=== PATIENT | male | born 1950 | race Caucasian/White ===

== ENCOUNTER → 2016-11-19 | Outpatient (CLI) | payer MEDICARE, BC | LOC: RAD 08:09 | PROVIDERS: ATTEND Internal Medicine | DX: C64.1 Malignant neoplasm of right kidney, except renal pelvis (principal) | CPT/HCPCS: 70460; 71260; 74177 ==

== ENCOUNTER 2016-12-03 07:12 | Day surgery (SDC) | payer MEDICARE, BC ==
[~2016-12-03 07:12] MED LIST: EPINEPHRINE INJ 1 MG/10 ML DISP.SYRIN ONE; FENTANYL CITRATE INJ/PF 100 MCG/2 ML AMPUL ONE; FLUMAZENIL INJ 0.5 MG/5 ML VIAL IV ONE; GLUCAGON,HUMAN RECOMB 1 MG INJ ONE; GLYCOPYRROLATE INJ 0.4 MG/2 ML VIAL ONE; NALOXONE HCL INJ/PF 0.4 MG/1 ML SDV ONE; ONDANSETRON HCL INJ/PF 4 MG/2 ML SDV ONE; PROMETHAZINE HCL INJ 25 MG/1 ML VIAL ONE
[2016-12-03] MEDS: MIDAZOLAM 2 MG/2 ML INJ ONE ×2 (08:06→08:12)
--- NOTE | 2016-12-03 08:39 | Operative Report ---
Operative Report DATE OF SURGERY: 12/03/16 PREOPERATIVE DIAGNOSIS: 1. Anemia. 2. Renal masses. 3. Need for screening colonoscopy POSTOPERATIVE DIAGNOSIS: Same with rectosigmoid polyp OPERATION: 1. Total colonoscopy to cecum with photodocumentation. 2. Rectosigmoid polypectomy at 18 cm from the anal verge SURGEON: JUNE ALBA ANESTHESIA: Moderate Sedation TISSUE REMOVED OR ALTERED: Polyp COMPLICATIONS: None ESTIMATED BLOOD LOSS: none INTRAOPERATIVE FINDINGS: See below PROCEDURE: Obtaining informed consent the patient was taken from the preoperative holding area to the main endoscopy suite where monitoring devices were attached to the patient. Plan and surgical timeout were conducted The patient was placed in the left lateral decubitus position with knees to chest. A perianal examination was performed. There was no visible or palpable anorectal pathology. Sphincter tone was felt to be normal. The flexible adult colonoscope was advanced through the anal rectal canal, all the way to the cecum. Utilization of the cecum was achieved and the ileocecal valve, the appendiceal orifice and transillumination of the anterior abdominal wall. This was an excellent study on the well-prepped bowel. The colonoscope was withdrawn slowly and methodically checked and the mucosa carefully. There was no evidence of tumor, stricture, or bleeding. In the upper rectum swelling 18 cm from the anal verge rectosigmoid junction was a pedunculated polyp approximately 4-5 mm in diameter. It was photographed , lasted with the snare, and polypectomy performed on medium heat strength. Specimen retrieved. No bleeding at the polypectomy site. There was no evidence of diverticuloses. The scope was slowly withdrawn through the anal rectal canal. Complete visualization of the rectum was achieved with photodocumentation. The scope was withdrawn to the patient's anus. The patient tolerated the procedure well and was taken to the recovery area in stable condition. At this point, barring any other pathologic findings involving the GI tract, the patient will be appropriate candidate for surveillance colonoscopy in 3 years, or sooner if symptoms develop.
--- NOTE | 2016-12-03 08:42 | PDOC DISCHARGE SUMMARY ---
Discharge Summary (SDC) - Discharge Final Diagnosis: 1. Anemia 2. Rectosigmoid Polyp 3. Renal masses Date of Surgery: 12/03/16 Discharge Date: 12/03/16 Condition: Good Treatment or Instructions: [address] [address] POST ENDOSCOPY DISCHARGE INSTRUCTIONS 1. Diet: Start clear liquids that a regular diet as tolerated. 2. Resume all preoperative medications. All oral anticoagulations and aspirins can be resumed 24 hours after procedure. 3. If a polypectomy was performed some bleeding per rectum may occur. This should stop within 3 days. If not, please contact the office. 4. If you had a colonoscopy you may experience some bloating and delayed return of normal bowel function for several days, your regular bowel movement pattern should resume within a week. 5. Please contact [facility] at to make an appointment with Dr Ceron for 1 to 3 weeks following procedure. 6. If you have any questions or concerns regarding your care,treatment plan or follow up, please contact our office. 7. Per clinical guidelines we recommend you undergo a repeat colonoscopy in 3 years. Discharge Diet: As Tolerated Discharge Activity: Activity As Tolerated Home Care Assistance: None Needed Report the Following to Your Physician Immediately: Shortness of Breath, Increase in Pain, Fever over 101 Degrees - Patient follow-up [facility], Dr. Ceron, in 1 to 2 weeks.
[2016-12-03 09:33] VITALS: BP 109/71
== END 2016-12-03 09:34 | disposition home or self-care (01) ==
LOC: END 07:12
PROVIDERS: ATTEND Surgery
PROC: 0DBP8ZX Excision of Rectum, Via Natural or Artificial Opening Endoscopic, Diagnostic (ICD-10-PCS; 2016-12-03)
PROC: 0DBN8ZX Excision of Sigmoid Colon, Via Natural or Artificial Opening Endoscopic, Diagnostic (ICD-10-PCS; principal; 2016-12-03 07:30)
DX: Z12.11 Encounter for screening for malignant neoplasm of colon (principal); D12.7 Benign neoplasm of rectosigmoid junction; C64.1 Malignant neoplasm of right kidney, except renal pelvis; D50.9 Iron deficiency anemia, unspecified; F17.210 Nicotine dependence, cigarettes, uncomplicated; I48.91 Unspecified atrial fibrillation; F41.9 Anxiety disorder, unspecified; F43.10 Post-traumatic stress disorder, unspecified; K21.9 Gastro-esophageal reflux disease without esophagitis; I10 Essential (primary) hypertension; I73.9 Peripheral vascular disease, unspecified; Z79.899 Other long term (current) drug therapy
CPT/HCPCS: 45385; 82962; 88305 ×2; J2250; J3010; J0171; J1610; J2310; J2405; J2550; J3490

== ENCOUNTER 2017-03-04 17:29 | Emergency (ER) | payer MEDICARE, BC ==
--- NOTE | 2017-03-04 18:15 | ER Document Report ---
ED Medical Screen (RME) - General Chief Complaint: Chest Pain Stated Complaint: CHEST PAIN Time Seen by Provider: 03/04/17 18:08 Notes: Patient is complaining of a "sharp, stabbing, pain in the left lower anterior chest region that began when he awakened Wednesday morning. At first it was mild and off and on, but now has become constant. It hurts for him to move or take a deep breath and he feels short of breath. Recalls no injury or unusual activity that would have strained his chest wall. Has had diarrhea but no vomiting. A nonproductive cough has been present. No fever. Hx atrial fibrillation Patient was diagnosed with kidney cancer a year ago. He has been too anemic to undergo surgery. Recently moved to this area from [place]. TRAVEL OUTSIDE OF THE [place] IN LAST 30 DAYS: No - Related Data Allergies/Adverse Reactions: ondansetron [From Zofran (as hydrochloride)] Allergy (Severe, Verified 03/04/17 17:44) HEADACHE diazepam [From Valium] Allergy (Intermediate, Verified 03/04/17 17:44) HARD TIME WAKING meperidine [From Demerol] Allergy (Intermediate, Verified 03/04/17 17:44) HARD TO WAKE UP oxycodone Allergy (Intermediate, Verified 03/04/17 17:44) ITCHING lorazepam [From Ativan] Allergy (Verified 03/04/17 17:44) "HYPER" atorvastatin [From Lipitor] Adverse Reaction (Verified 03/04/17 17:44) VOMITING Past Medical History - Past Medical History Cardiac Medical History: Reports: Hx Hypertension Denies: Hx Coronary Artery Disease, Hx Heart Attack Pulmonary Medical History: Denies: Hx Asthma, Hx Bronchitis, Hx COPD, Hx Pneumonia Neurological Medical History: Denies: Hx Cerebrovascular Accident, Hx Seizures Renal/ Medical History: Denies: Hx Peritoneal Dialysis Musculoskeltal Medical History: Reports Hx Arthritis - R/T SURGERY - Immunizations Hx Diphtheria, Pertussis, Tetanus Vaccination: Yes Physical Exam - Vital signs Vitals: Temp Pulse Resp BP Pulse Ox 97.5 F 83 20 158/104 H 98 03/04/17 17:44 03/04/17 17:44 03/04/17 17:44 03/04/17 17:44 03/04/17 17:44 Course - Vital Signs Vital signs: Temp Pulse Resp BP Pulse Ox 97.5 F 83 20 158/104 H 98 03/04/17 17:44 03/04/17 17:44 03/04/17 17:44 03/04/17 17:44 03/04/17 17:44
[2017-03-04 18:49] LABS: ABSOLUTE BASOPHILS # (AUTO) 0.1 10^3/uL (0.0-0.2); ABSOLUTE EOSINOPHILS # (AUTO) 0.3 10^3/uL (0.0-0.6); ABSOLUTE LYMPHOCYTES (AUTO) 2.7 10^3/uL (0.5-4.7); ABSOLUTE MONOCYTES (AUTO) 0.5 10^3/uL (0.1-1.4); ABSOLUTE NEUT (AUTO) 4.9 10^3/uL (1.7-8.2); EOSINOPHILS % (AUTO) 3.6 % (0-6); HEMATOCRIT 46.4 % (37.9-51.0); HEMOGLOBIN 15.8 g/dL (13.5-17.0); LYMPHOCYTES % (AUTO) 31.7 % (13-45); MEAN CORPUSCULAR HEMOGLOBIN 29.6 pg (27.0-33.4); MEAN CORPUSCULAR HGB CONC 34.1 g/dL (32.0-36.0); MEAN CORPUSCULAR VOLUME 87 fl (80-97); MONOCYTES % (AUTO) 5.9 % (3-13); RED BLOOD COUNT 5.35 10^6/uL (4.35-5.55); RED CELL DISTRIBUTION WIDTH 15.8 % (11.5-14.0); SEGMENTED NEUTROPHILS % (AUTO) 57.8 % (42-78); WHITE BLOOD COUNT 8.5 10^3/uL (4.0-10.5)
[2017-03-04 19:09] LABS: ALANINE AMINOTRANSFERASE 21 U/L (21-72); ALBUMIN 4.2 g/dL (3.5-5.0); ALKALINE PHOSPHATASE 80 U/L (38-126); ANION GAP 10 (5-19); ASPARTATE AMINO TRANSFERASE 19 U/L (17-59); BILIRUBIN,DIRECT 0.5 mg/dL (0.0-0.4); BILIRUBIN,TOTAL 0.8 mg/dL (0.2-1.3); BLOOD UREA NITROGEN 15 mg/dL (7-20); CALCIUM 9.6 mg/dL (8.4-10.2); CARBON DIOXIDE 26 mmol/L (22-30); CHLORIDE 103 mmol/L (98-107); CREATINE KINASE 76 U/L (55-170); CREATININE RESULT 1.01 mg/dL (0.52-1.25); GLUCOSE 94 mg/dL (75-110); POTASSIUM 4.6 mmol/L (3.6-5.0); SODIUM 139.2 mmol/L (137-145); TOTAL PROTEIN 7.3 g/dL (6.3-8.2)
[2017-03-04 19:20] LABS: CREATINE KINASE MB 1.43 ng/mL (<4.55)
[2017-03-04 19:26] LABS: TROPONIN I < 0.012 ng/mL
[2017-03-04] MEDS ORDERED: HYDROCODONE/ACETAMINOPHEN 5-325 MG TABLET PO ONE (21:52)
[2017-03-04] MEDS ORDERED: ALPRAZOLAM 0.5 MG TABLET PO ONE (21:53)
--- NOTE | 2017-03-04 21:59 | ER Document Report ---
ED General - General Chief Complaint: Chest Pain Stated Complaint: CHEST PAIN Time Seen by Provider: 03/04/17 18:08 Mode of Arrival: Medic Information source: Patient TRAVEL OUTSIDE OF THE [place] IN LAST 30 DAYS: No - HPI Notes: Patient is a 67-year-old white male history of bilateral renal cancer presents emergency department with report of 3 day history of left-sided pleuritic chest pain associated with a nonproductive cough. He denies any nausea vomiting or fever. He states the pain is pleuritic and associated with some shortness of breath. He reports a mild headache, not the worst of his life. He describes very minimal diarrhea. He reports that he was referred for hospice previously in [place], states he moved here in September. Patient states he was told previously he had cancer in his brain lungs and on one kidney, then subsequent scans and studies performed on 11/19/16 here showed a negative head CT a negative chest CT and did confirm cancer appearing lesions and the kidneys 2 cm on the right and 1.5 cm on the left. For somewhat unclear reasons, the patient was taken off his Pradaxa two months ago for his chronic atrial fibrillation. The patient reports of chest pain is left-sided and nonmigratory. Patient follows up with an oncologist, but states he has been unable to obtain a ride to go see a follow-up urologist surgeon in [place] for further evaluation of his renal cancer. Medications Cymbalta, Seroquel, Xanax 2 mg p.o. nightly. He has not had Xanax this evening. - Related Data Allergies/Adverse Reactions: ondansetron [From Zofran (as hydrochloride)] Allergy (Severe, Verified 03/04/17 17:44) HEADACHE diazepam [From Valium] Allergy (Intermediate, Verified 03/04/17 17:44) HARD TIME WAKING meperidine [From Demerol] Allergy (Intermediate, Verified 03/04/17 17:44) HARD TO WAKE UP oxycodone Allergy (Intermediate, Verified 03/04/17 17:44) ITCHING lorazepam [From Ativan] Allergy (Verified 03/04/17 17:44) "HYPER" atorvastatin [From Lipitor] Adverse Reaction (Verified 03/04/17 17:44) VOMITING Past Medical History - General Information source: Patient - Social History Smoking Status: Current Every Day Smoker Chew tobacco use (# tins/day): No Frequency of alcohol use: None Drug Abuse: None Lives with: Family Family History: Reviewed & Not Pertinent Patient has suicidal ideation: No Patient has homicidal ideation: No - Past Medical History Cardiac Medical History: Reports: Hx Hypertension Denies: Hx Coronary Artery Disease, Hx Heart Attack Pulmonary Medical History: Denies: Hx Asthma, Hx Bronchitis, Hx COPD, Hx Pneumonia Neurological Medical History: Denies: Hx Cerebrovascular Accident, Hx Seizures Renal/ Medical History: Denies: Hx Peritoneal Dialysis Musculoskeltal Medical History: Reports Hx Arthritis - R/T SURGERY - Immunizations Hx Diphtheria, Pertussis, Tetanus Vaccination: Yes Hx Pneumococcal Vaccination: 10/18/14 Review of Systems - Review of Systems Notes: REVIEW OF SYSTEMS: CONSTITUTIONAL : Denies fever, chills, or sweats. EENT: Denies eye, ear, throat, or mouth pain or symptoms. Denies nasal or sinus congestion or discharge. Denies throat, tongue, or mouth swelling or difficulty swallowing. CARDIOVASCULAR: Denies palpitations or racing or irregular heart beat. Denies ankle edema. RESPIRATORY: Denies wheezing. GASTROINTESTINAL: Denies abdominal pain or distention. Denies nausea, vomiting , or diarrhea. Denies blood in vomitus, stools, or per rectum. Denies black, tarry stools. Denies constipation. GENITOURINARY: Denies difficulty urinating, painful urination, burning, frequency, blood in urine, or discharge. MUSCULOSKELETAL: Denies back or neck pain or stiffness. Denies joint pain or swelling. SKIN: Denies rash, lesions or sores. HEMATOLOGIC : Denies easy bruising or bleeding. LYMPHATIC: Denies swollen, enlarged glands. NEUROLOGICAL: Denies confusion or altered mental status. Denies passing out or loss of consciousness. Denies dizziness or lightheadedness. Denies weakness or paralysis or loss of use of either side. Denies problems with gait or speech. Denies sensory loss, numbness, or tingling. Denies seizures. PSYCHIATRIC: Denies anxiety or stress. Denies depression, suicidal ideation, or homicidal ideation. ALL OTHER SYSTEMS REVIEWED AND NEGATIVE. Dictation was performed using [employer] voice recognition software Physical Exam - Vital signs Vitals: Temp Pulse Resp BP Pulse Ox 97.5 F 83 20 158/104 H 98 03/04/17 17:44 03/04/17 17:44 03/04/17 17:44 03/04/17 17:44 03/04/17 17:44 - Notes Notes: PHYSICAL EXAMINATION: GENERAL: Well-appearing, well-nourished and in no acute distress. Very anxious. HEAD: Atraumatic, normocephalic. EYES: Pupils equal round and reactive to light, extraocular movements intact, sclera anicteric, conjunctiva are normal. ENT: Nares patent, oropharynx clear without exudates. Moist mucous membranes. NECK: Normal range of motion, supple without lymphadenopathy LUNGS: Breath sounds clear to auscultation bilaterally and equal. No wheezes rales or rhonchi. Tenderness left anterior chest wall. No crepitance or bony deformity. HEART: Regular rate and rhythm without murmurs ABDOMEN: Soft, nondistended abdomen. No guarding, no rebound. No masses appreciated. Minimal tenderness along the left lower anterior costal margin. No crepitance or bony deformity or erythema. Musculoskeletal: Normal range of motion, no pitting or edema. No cyanosis. Negative Homans. No palpable cord. NEUROLOGICAL: Cranial nerves grossly intact. Normal speech, normal gait. Normal sensory, motor exams PSYCH: Normal mood, normal affect. SKIN: Warm, Dry, normal turgor, no rashes or lesions noted. Course - Re-evaluation Re-evalutation: 03/04/17 22:00 Patient was given Xanax 2 mg which is his usual evening dose, and was given two hydrocodone tablets which he has tolerated previously. Initial and repeat troponin were negative on the patient. 03/04/17 23:14 Patient was watched on it web development consultant and he remained in atrial fibrillation with controlled ventricular response. The patient's blood pressure remained stable. The patient reported improvement after his hydrocodone and Xanax dosing. Patient's and the patient reported that the patient's oncologist was taking steps keeping him comfortable, and the patient had stated he did not want to undergo chemotherapy or other significant aggressive treatment for his cancer. CT scan of the chest and abdomen are pending on the patient at the current time. Must rule out spread of cancer versus pulmonary embolus given that the patient is anticoagulated at the current time. Must also rule out pneumonia given the recent mild cough. 03/05/17 00:00 - Vital Signs Vital signs: Temp Pulse Resp BP Pulse Ox 97.5 F 83 14 158/104 H 99 03/04/17 17:44 03/04/17 17:44 03/04/17 21:27 03/04/17 17:44 03/04/17 21:27 - Laboratory Result Diagrams: 03/04/17 18:20 03/04/17 18:20 Laboratory results interpreted by me: 03/04/17 03/04/17 18:20 18:20 RDW 15.8 H Direct Bilirubin 0.5 H - EKG Interpretation by Me Additional EKG results interpreted by me: 03/04/17 21:59 EKG as interpreted by me showed Atrial fibrillation which is chronic for the patient with controlled ventricular response rate of 71. There is no gross evidence for acute HI or ischemia identified. No old EKG available for comparison. 03/04/17 22:00 Discharge - Discharge Clinical Impression: Chest pain Qualifiers: Chest pain type: unspecified Qualified Code(s): R07.9 - Chest pain, unspecified Renal cell cancer Qualifiers: Laterality: left Qualified Code(s): C64.2 - Malignant neoplasm of left kidney, except renal pelvis Atrial fibrillation Qualifiers: Atrial fibrillation type: chronic Qualified Code(s): I48.2 - Chronic atrial fibrillation Prescriptions: Alprazolam [Xanax] 2 mg PO HSP PRN #30 tablet PRN Reason: Referrals: NORMA SIN MD [Primary Care Provider] - Follow up as needed
[2017-03-05 02:25] VITALS: BP 138/83
--- NOTE | 2017-03-05 07:11 | EKG REPORT ---
SEVERITY:- ABNORMAL ECG - ATRIAL FIBRILLATION, V-RATE 53-91 BORDERLINE PROLONGED QT INTERVAL : Confirmed by: Monique Crowell MD 05-Mar-2017 07:10:43
== END 2017-03-05 02:34 | disposition home or self-care (01) ==
LOC: ER 17:29
DX: R07.81 Pleurodynia (principal); R06.02 Shortness of breath; R05 Cough; I48.2 Chronic atrial fibrillation; C64.2 Malignant neoplasm of left kidney, except renal pelvis; R51 Headache; R19.7 Diarrhea, unspecified; I10 Essential (primary) hypertension; F17.200 Nicotine dependence, unspecified, uncomplicated; Z79.899 Other long term (current) drug therapy; Z88.8 Allergy status to other drugs, medicaments and biological substances; Z88.5 Allergy status to narcotic agent
CPT/HCPCS: 93005; 99285; 36415; 82553; 82550; 85025; 80053; 84484; 71020; 71275; 74175; 72191; 93010; A9270 ×2; 74174